=== PATIENT | female | born 1975 | race Caucasian/White ===

== ENCOUNTER 2023-04-21 22:44 | Emergency (ER) | payer OTHER ==
[~2023-04-21] VITALS: Ht 160 cm; Wt 39.5 kg
[2023-04-21 22:54] VITALS: BP_SYST 129; PULSE 114; RESP 20; TEMP 97.7; O2SAT 97
[2023-04-21 23:37] LABS: BASOPHILS # (AUTO) 0.1 K/uL (0.0-0.2); BASOPHILS % (AUTO) 1.3 % (0.0-2.0); EOSINOPHILS % (AUTO) 1.2 % (0.0-4.0); HEMOGLOBIN 7.1 g/dL (12.0-16.0); LYMPHOCYTES # (AUTO) 1.2 K/uL (1.0-5.5); LYMPHOCYTES % (AUTO) 31.2 % (20.5-51.5); MEAN CORPUSCULAR HEMOGLOBIN 29 pg (27-31); MEAN CORPUSCULAR HGB CONC 33 % (32-36); MEAN CORPUSCULAR VOLUME 89 fL (79.0-98.0); MONOCYTES # (AUTO) 0.5 K/uL (0.0-1.0); MONOCYTES % (AUTO) 13.7 % (1.7-9.3); NEUTROPHILS # (AUTO) 2.1 K/uL (1.8-7.7); NEUTROPHILS % (AUTO) 52.6 % (40.0-70.0); PLATELET COUNT (AUTO) 212 K/uL (130-430); RED BLOOD CELL COUNT(AUTO) 2.43 MIL/uL (4.2-6.2); RED CELL DISTRIBUTION WIDTH 20.2 % (9.0-15.0)
[2023-04-21 23:50] LABS: CALCIUM 12.3 mg/dL (8.4-11.0); CREATININE 0.76 mg/dL (0.55-1.30); POTASSIUM 4.2 mmol/L (3.5-5.1)
[2023-04-21 23:54] LABS: ALBUMIN 2.7 g/dL (3.4-4.8); BILIRUBIN,DIRECT 0.2 mg/dL (0.0-0.3); TOTAL BILIRUBIN 0.5 mg/dL (0.0-1.0); TOTAL PROTEIN, SERUM 7.4 g/dL (6.4-8.3)
[2023-04-22] LABS: HEMATOCRIT 21.5 % (36-48)
[2023-04-22] MEDS: KETOROLAC TROMETHAMINE 15 MG VIAL IVP ONE (00:12)
[2023-04-22] MEDS: NACL 0.9% 1,000 ML IV ONE (00:12)
[2023-04-22 00:16] LABS: BILIRUBIN,URINE NEGATIVE (NEGATIVE); BLOOD, URINE NEGATIVE (NEGATIVE); CLARITY/URINE CLEAR (CLEAR); COLOR,URINE YELLOW (YELLOW); GLUCOSE,URINE NEGATIVE (NEGATIVE); KETONES,URINE TRACE (NEGATIVE); LEUKOCYTE ESTERASE ,URINE NEGATIVE (NEGATIVE); NITRITE, URINE NEGATIVE (NEGATIVE); PROTEIN URINE NEGATIVE (NEGATIVE); UROBILINOGEN,URINE 0.2 (0.2-1.0)
[2023-04-22] MEDS: MAG-AL HYDROX/SIMETH 30 ML UDC PO ONE (01:10)
[2023-04-22] MEDS: LIDOCAINE VISCOUS 2%, 15 ML UDC MM ONE (01:10)
[2023-04-22 01:26] VITALS: BP_SYST 129; PULSE 114; RESP 20; TEMP 97.7; O2SAT 97
== END 2023-04-22 01:36 | disposition left against medical advice (07) ==
LOC: SED 22:44
DX: K29.70 Gastritis, unspecified, without bleeding (principal); D64.9 Anemia, unspecified; E86.0 Dehydration
CPT/HCPCS: 99283; 80076; 80048; 81001; 83690; 85025; 36415; 96374; 96361; J1885; J7030; 81003; J2001

== ENCOUNTER 2023-04-25 16:19 | Inpatient (IN) | payer OTHER ==
[~2023-04-25] VITALS: Ht 160 cm; Wt 39.0 kg
[2023-04-25 16:20] VITALS: BP_SYST 130; PULSE 111; RESP 19; TEMP 99.1; O2SAT 100
[2023-04-25 18:15] LABS: WHITE BLOOD COUNT (AUTO) 4.4 K/uL (4.8-10.8)
[2023-04-25 18:21] LABS: BILIRUBIN,DIRECT 0.1 mg/dL (0.0-0.3); CALCIUM 11.7 mg/dL (8.4-11.0); CREATININE 0.87 mg/dL (0.55-1.30); TOTAL BILIRUBIN 0.4 mg/dL (0.0-1.0)
[2023-04-25 18:30] LABS: INR 0.9 (0.8-1.2); PROTHROMBIN TIME 9.7 SECS (9.5-12.5)
[2023-04-25 18:41] LABS: HEMATOCRIT 24.4 % (36-48); HEMOGLOBIN 8.1 g/dL (12.0-16.0); MEAN CORPUSCULAR HEMOGLOBIN 29 pg (27-31); MEAN CORPUSCULAR HGB CONC 33 % (32-36); MEAN CORPUSCULAR VOLUME 88 fL (79.0-98.0); PLATELET COUNT (AUTO) 283 K/uL (130-430); RED BLOOD CELL COUNT(AUTO) 2.77 MIL/uL (4.2-6.2); RED CELL DISTRIBUTION WIDTH 20.3 % (9.0-15.0)
[2023-04-25 19:43] LABS: ANISOCYTOSIS 2+; BAND % (MANUAL) 4 % (0-6); BASOPHILS % (MANUAL) 0 % (0-2); CORRECTED WHITE BLOOD COUNT 4.1 K/uL (4.5-11.0); EOSINOPHILS % (MANUAL) 0 % (0-7); LYMPHOCYTES % (MANUAL) 32 % (20-46); MONOCYTES % (MANUAL) 9 % (0-11); PLATELET ESTIMATE ADEQUATE (ADEQUATE)
[2023-04-25 19:57] LABS: BILIRUBIN,URINE NEGATIVE (NEGATIVE); BLOOD, URINE NEGATIVE (NEGATIVE); CLARITY/URINE SL CLOUDY (CLEAR); COLOR,URINE YELLOW (YELLOW); GLUCOSE,URINE NEGATIVE (NEGATIVE); KETONES,URINE NEGATIVE (NEGATIVE); LEUKOCYTE ESTERASE ,URINE NEGATIVE (NEGATIVE); NITRITE, URINE NEGATIVE (NEGATIVE); PH,URINE 5.5 (5.0-8.0); PROTEIN URINE NEGATIVE (NEGATIVE); UROBILINOGEN,URINE 0.2 (0.2-1.0)
[2023-04-25] MEDS: NACL 0.9% 1,000 ML IV ONE (20:01)
[2023-04-25 20:39] LABS: BACTERIA,URINE FEW /HPF (None Seen); RBC,URINE 0-3 /HPF (0-3); URIC ACID CRYSTALS,URINE 0-10 /HPF (None Seen)
[2023-04-25] MEDS ORDERED: LORazepam 2 MG/ML VIAL IVP PRN (22:15)
[2023-04-25] MEDS ORDERED: NALOXONE HCL 0.4 MG/ML AMP (NARCAN) IVP PRN ×2 (22:15)
[2023-04-25] MEDS ORDERED: HYDROcodone/ACETAMIN 5-325 MG TAB (NORCO/ VICODIN) PO PRN (22:15)
[2023-04-25] MEDS: ONDANSETRON HCL 4 MG/2 ML VIAL IVP PRN (22:32)
[2023-04-25] MEDS: HYDROcodone/ACETAMIN 10-325 MG TAB PO PRN (22:33)
[2023-04-26] MEDS: ACETAMINOPHEN 325 MG TABLET PO PRN (01:32)
[2023-04-26 04:15] LABS: BASOPHILS # (AUTO) 0.1 K/uL (0.0-0.2); BASOPHILS % (AUTO) 1.2 % (0.0-2.0); EOSINOPHILS # (AUTO) 0.1 K/uL (0.0-0.4); EOSINOPHILS % (AUTO) 1.6 % (0.0-4.0); LYMPHOCYTES # (AUTO) 1.6 K/uL (1.0-5.5); LYMPHOCYTES % (AUTO) 38.5 % (20.5-51.5); MEAN CORPUSCULAR HEMOGLOBIN 29 pg (27-31); MEAN CORPUSCULAR HGB CONC 32 % (32-36); MEAN CORPUSCULAR VOLUME 89 fL (79.0-98.0); MONOCYTES # (AUTO) 0.4 K/uL (0.0-1.0); MONOCYTES % (AUTO) 9.6 % (1.7-9.3); NEUTROPHILS % (AUTO) 49.1 % (40.0-70.0); PLATELET COUNT (AUTO) 241 K/uL (130-430); RED BLOOD CELL COUNT(AUTO) 2.38 MIL/uL (4.2-6.2); RED CELL DISTRIBUTION WIDTH 20.2 % (9.0-15.0); WHITE BLOOD COUNT (AUTO) 4.2 K/uL (4.8-10.8)
[2023-04-26 04:22] LABS: CALCIUM 11.4 mg/dL (8.4-11.0); CREATININE 0.9 mg/dL (0.55-1.30); PHOSPHORUS 4.3 mg/dL (2.7-4.5); POTASSIUM 3.3 mmol/L (3.5-5.1)
[2023-04-26 04:23] LABS: HEMATOCRIT 21.1 % (36-48); HEMOGLOBIN 6.8 g/dL (12.0-16.0)
[2023-04-26] MEDS: NORMAL SALINE 5 ML DISP.SYRIN IVF SCH (05:27)
[2023-04-26 15:01] LABS: BILIRUBIN,URINE NEGATIVE (NEGATIVE); BLOOD, URINE 1+ (NEGATIVE); CLARITY/URINE CLEAR (CLEAR); COLOR,URINE YELLOW (YELLOW); GLUCOSE,URINE NEGATIVE (NEGATIVE); KETONES,URINE NEGATIVE (NEGATIVE); LEUKOCYTE ESTERASE ,URINE NEGATIVE (NEGATIVE); NITRITE, URINE NEGATIVE (NEGATIVE); PH,URINE 5.5 (5.0-8.0); PROTEIN URINE NEGATIVE (NEGATIVE); UROBILINOGEN,URINE 0.2 (0.2-1.0)
[2023-04-26 15:20] LABS: BACTERIA,URINE FEW /HPF (None Seen); WBC,URINE 0-3 /HPF (0-3)
[2023-04-26 15:21] LABS: HYALINE CASTS, URINE 0-1 /LPF (None Seen)
[2023-04-26] MEDS: NACL 0.9% 1,000 ML IV SCH (16:06)
[2023-04-26 17:42] VITALS: BP_SYST 114; PULSE 99; RESP 16; TEMP 97.7; O2SAT 97
[2023-04-27 08:06] LABS: CANCER AG, 125 69.3 U/mL (0.0-38.1)
== END 2023-04-26 17:40 | disposition left against medical advice (07) | DRG 755 ==
LOC: SED 16:19 → SMU 20:47
PROVIDERS: ADMIT Preventive Medicine Preventive Medicine/Occupational Environmental Medicine; ATTEND Preventive Medicine Preventive Medicine/Occupational Environmental Medicine
DX: C56.9 Malignant neoplasm of unspecified ovary (principal); R18.8 Other ascites; D64.9 Anemia, unspecified; D72.819 Decreased white blood cell count, unspecified; R74.01 Elevation of levels of liver transaminase levels; E88.09 Other disorders of plasma-protein metabolism, not elsewhere classified; K80.20 Calculus of gallbladder without cholecystitis without obstruction; E83.52 Hypercalcemia
CPT/HCPCS: 36415; 71045; 76856; 80048; 80076; 81000; 81001; 81003; 81015; 82272; 82330; 83735; 83970; 84100; 85007; 85025; 85027; 85610; 85730; 86304; 86886; 86900; 86901; 86920; 93005; 96360; 99285; J2405

== ENCOUNTER 2023-04-29 08:49 | Emergency (ER) | payer OTHER ==
[~2023-04-29] VITALS: Ht 160 cm; Wt 39.0 kg
[2023-04-29 09:00] VITALS: BP_SYST 117; PULSE 66; RESP 19; TEMP 98; O2SAT 98
[2023-04-29] MEDS: ONDANSETRON HCL 4 MG/2 ML VIAL IVP ONE (09:15)
[2023-04-29] MEDS: HYDROmorphone 1 MG/ML INJ. CARTRIDGE IVP ONE (09:18)
[2023-04-29] MEDS ORDERED: OXYC-128 PO (09:58)
[2023-04-29] MEDS ORDERED: ONDA-8 TL (09:58)
[2023-04-29 13:00] VITALS: BP_SYST 121; PULSE 77; RESP 19; TEMP 98; O2SAT 99
== END 2023-04-29 13:00 | disposition home or self-care (01) ==
LOC: SED 08:49
DX: N83.209 Unspecified ovarian cyst, unspecified side (principal); R10.9 Unspecified abdominal pain; Z79.899 Other long term (current) drug therapy
CPT/HCPCS: 99284; 96374; 96375; J2405; J1170